=== PATIENT | male | born 1985 | race Hispanic/Latino ===

== ENCOUNTER 2016-08-16 11:33 | Emergency (ER) | payer SELFPAY ==
[2016-08-16 11:40] VITALS: BMI 27.6
[2016-08-16 11:46] VITALS: BP 163/103; RESP 92; TEMP 98.4; O2SAT 99
[2016-08-16] MEDS ORDERED: Oxycodone/Acetaminophen 5/325 mg Tab PO STA (12:17)
--- NOTE | 2016-08-16 12:28 | ED PDOC ---
HPI: Dental Pain/Injury Time Seen by Provider: 08/16/16 12:11 Chief Complaint (Nursing): Dental Pain Chief Complaint (Provider): Left upper dental pain x 2 days History Per: Patient History/Exam Limitations: no limitations Onset/Duration Of Symptoms: Days Current Symptoms Are (Timing): Still Present Severity: Severe Pain Scale Rating Of: 10 Additional Complaint(s): Pt states he has had mild pain there in the past but now the pain is worse. States he took motrin 800mg and naproxen without relief. Denies fever/chills. Denies drainage from site. PT states he has not seen a dentist. Past Medical History Reviewed: Historical Data, Nursing Documentation, Vital Signs Vital Signs: Last Vital Signs Temp 98.4 F 08/16/16 11:44 Pulse Resp 92 H 08/16/16 11:44 BP 163/103 H 08/16/16 11:44 Pulse Ox 99 08/16/16 11:44 - Medical History PMH: No Chronic Diseases - Surgical History Surgical History: No Surg Hx - Family History Family History: States: Unknown Family Hx - Living Arrangements Living Arrangements: With Family - Social History Current smoker - smoking cessation education provided: Yes Alcohol: Occasional Drugs: Denies - Home Medications Home Medications: Ambulatory Orders Medication Instructions Recorded oxyCODONE/Acetaminophen [Percocet 1 tab PO Q6H PRN #15 tab 06/13/14 5/325 mg Tab] Ibuprofen [Motrin] 600 mg PO Q8 #20 tab 12/04/14 Naproxen [Naprosyn] 500 mg PO BID PRN #30 tab 06/21/15 Penicillin VK [Pen-Vee K] 500 mg PO BID #20 tab 08/16/16 oxyCODONE/Acetaminophen [Percocet 1 ea PO Q6H PRN #5 tab 08/16/16 5/325 mg Tab] - Allergies Allergies/Adverse Reactions: Allergies Allergy/AdvReac Type Severity Reaction Status Date / Time No Known Allergies Allergy Verified 12/04/14 18:25 Review of Systems ROS Statement: Except As Marked, All Systems Reviewed And Found Negative ENT: Positive for: Other (Dental pain) Physical Exam - Reviewed Nursing Documentation Reviewed: Yes Vital Signs Reviewed: Yes - Physical Exam Appears: Positive for: Well, Non-toxic, No Acute Distress Head Exam: Positive for: ATRAUMATIC, NORMAL INSPECTION, NORMOCEPHALIC Skin: Positive for: Normal Color, Warm, DRY Eye Exam: Positive for: Normal appearance ENT: Positive for: Normal ENT Inspection, TM Is/Are (normal ), Other ((+) dental decay, no abscess formation, no erythema of the gingiva) Neck: Positive for: Normal, Painless ROM Cardiovascular/Chest: Positive for: Regular Rate, Rhythm Respiratory: Positive for: Normal Breath Sounds. Negative for: Accessory Muscle Use, Respiratory Distress Back: Positive for: Normal Inspection Extremity: Positive for: Normal ROM Lymphatic: Positive for: Normal Exam (Neck ) Neurologic/Psych: Positive for: Alert, Oriented - ECG O2 Sat by Pulse Oximetry: 99 Disposition - Clinical Impression Clinical Impression: Dental decay - Patient ED Disposition Is Patient to be Admitted: No Counseled Patient/Family Regarding: Diagnosis, Need For Followup, Rx Given - Disposition Disposition: Routine/Home Disposition Time: 12:28 Condition: GOOD Additional Instructions: [facility] [address] [place] [id number] Prescriptions: oxyCODONE/Acetaminophen [Percocet 5/325 mg Tab] 1 ea PO Q6H PRN #5 tab PRN Reason: Pain, Severe (8-10) Penicillin VK [Pen-Vee K] 500 mg PO BID #20 tab Instructions: Toothache (ED)
== END 2016-08-16 12:31 | disposition home or self-care (01) ==
LOC: H.ER 11:33
DX: K02.9 Dental caries, unspecified (principal)